=== PATIENT | male | born 1985 | race Caucasian/White ===

== ENCOUNTER 2018-01-06 15:22 | Emergency (ER) | payer BC ==
[2018-01-06] MEDS ORDERED: Doxycycline 100 MG Cap PO ONE (18:11)
[2018-01-06] MEDS ORDERED: Cephalexin 500 MG Cap PO ONE (18:12)
--- NOTE | 2018-01-06 18:14 | EDM.PDOC ---
ED HPI GENERAL MEDICAL PROBLEM - General Chief Complaint: Lower Extremity Injury/Pain Stated Complaint: INGROWN TOE NAIL Time Seen by Provider: 01/06/18 18:02 Source of Information: Reports: Patient, RN Notes Reviewed - History of Present Illness INITIAL COMMENTS - FREE TEXT/NARRATIVE: 32 year old male with paranychial infection R great toe. This started about 2 months ago. Has been soaking the toe occasionally. There has been intermitant drainage. pain, swelling, erythema that is not going away. On his feet a lot with work. Right Feet Pain Score (Numeric/FACES): 8 - Related Data Allergies Allergy/AdvReac Type Severity Reaction Status Date / Time No Known Allergies Allergy Verified 01/06/18 15:52 Home Meds: Home Meds . [No Known Home Meds] 05/27/14 [History] Past Medical History - Past Health History Medical/Surgical History: Denies Medical/Surgical History Social & Family History - Tobacco Use Smoking Status *Q: Never Smoker Second Hand Smoke Exposure: No - Alcohol Use Days Per Week of Alcohol Use: 0 - Recreational Drug Use Recreational Drug Use: No Review of Systems - Review of Systems Review Of Systems: See Below Constitutional: Denies: Chills, Fever Mouth/Throat: Reports: No Symptoms Respiratory: Denies: Shortness of Breath, Hemoptysis GI/Abdominal: Denies: Nausea, Vomiting Skin: Reports: Erythema (medial and lateral margins R great toe) Neurological: Denies: Numbness, Tingling ED EXAM, GENERAL - Physical Exam Exam: See Below General Appearance: Alert, No Apparent Distress Throat/Mouth: Normal Inspection Head: No: Facial Swelling Neck: Supple Respiratory/Chest: No Respiratory Distress Extremities: Redness (there is erythema, swelling, tenderness medial and lateral aspect of R great toe, greater on the lasteral side, slight crusting, no active drainage) Course - Vital Signs Last Recorded V/S: Last Vital Signs Temp 98.0 F 01/06/18 15:52 Pulse 62 01/06/18 15:52 Resp 15 01/06/18 15:52 BP 140/88 01/06/18 15:52 Pulse Ox 96 01/06/18 15:52 - Orders/Labs/Meds Meds: Medications Discontinued Medications Generic Name Dose Route Start Last Admin Trade Name Freq PRN Reason Stop Dose Admin Cephalexin 500 mg 01/06/18 18:12 01/06/18 18:21 Keflex PO 01/06/18 18:13 500 mg ONETIME ONE Administration Doxycycline Hyclate 200 mg 01/06/18 18:11 01/06/18 18:21 Vibramycin PO 01/06/18 18:12 200 mg ONETIME ONE Administration Departure - Departure Time of Disposition: 18:12 Disposition: Home, Self-Care 01 Condition: Fair Clinical Impression: Acute paronychia of toe of right foot - Discharge Information Instructions: Paronychia, [id number] Referrals: PCP,None [Primary Care Provider] - Forms: ED Department Discharge Additional Instructions: Silk foot in warm soapy water once or twice daily as best you can, cephalexin antibiotic 500 mg 4 times daily for 1 week, doxycycline antibiotic 100 mg twice daily for 10 days. Have rechecked the clinic if not getting back to normal within 5-7 days as expected. Follow-up with your regular medical provider or at [facility] if you do not have a regular medical provider, call [phone] as needed for appointment.
== END 2018-01-06 18:20 | disposition home or self-care (01) ==
LOC: JD.ED 15:22
DX: L03.031 Cellulitis of right toe (principal)
CPT/HCPCS: 99283; A9270

== ENCOUNTER 2018-05-14 12:03 | Emergency (ER) | payer OTHER, BC ==
[2018-05-14] MEDS ORDERED: Sodium Chloride 0.9% 10 ML Syringe FLUSH PRN ×2 (13:12→14:14)
[2018-05-14] MEDS ORDERED: HYDROmorphone 0.5 MG/0.5 ML SYRINGE IVPUSH ONE ×2 (13:12→15:04)
[2018-05-14] MEDS ORDERED: Sodium Chloride 0.9% 1,000 ML IV ONE (13:12)
[2018-05-14] MEDS ORDERED: Ondansetron 4 MG/2 ML SDV IVPUSH ONE (13:12)
--- NOTE | 2018-05-14 13:19 | EDM.PDOC ---
ED HPI GENERAL MEDICAL PROBLEM - General Chief Complaint: Gastrointestinal Problem Stated Complaint: VOMITING/SOB Time Seen by Provider: 05/14/18 12:52 Source of Information: Reports: Patient History Limitations: Reports: No Limitations - History of Present Illness INITIAL COMMENTS - FREE TEXT/NARRATIVE: 32-year-old male presents for evaluation and treatment of abdominal pain. Patient reports he was working on Sunday. Reports he was lifting something heavy when he felt a pop in his abdomen. He reports sudden abdominal pain around the umbilical area. Reports Sunday his symptoms seem to improve as he was off of work on Sunday. Reports Sunday his abdominal pain worsened. He states that a fever of 103. Reports that he vomited between 10 and 12 times over 2-3 hour period. He appreciated a mass to his abdomen which was able to reduce. This seemed to improve his abdominal pain and nausea. He reports trouble breathing due to the pain. He is not taking [id number] medications for his symptoms, no Tylenol or Motrin. He reports associated symptoms of chills. States he had one episode of diarrhea but no blood in his stool. No dysuria. Patient reports today he experienced significant pain to the periumbilical area. States that he was nauseated but again was able to push the mass back and his abdomen which improved his symptoms. He states currently the pain as a 9-10 out of 10. It is much worse with movement, coughing or sneezing. Patient reports he is still passing gas but is not passing as much as normal. Patient has an extensive past surgical history. He states that he had an appendectomy in 2005. He was told that he developed a benign pop can size mass to his colon Due to this leaking appendicitis. Was told that the mass was benign. He had surgery at [facility] in [place]. Left Middle Abdominal Pain Score (Numeric/FACES): 10 - Related Data Allergies Allergy/AdvReac Type Severity Reaction Status Date / Time No Known Allergies Allergy Verified 05/14/18 12:14 Home Meds: Home Meds . [No Known Home Meds] 05/27/14 [History] Past Medical History - Past Health History Medical/Surgical History: Denies Medical/Surgical History - Past Surgical History GI Surgical History: Reports: Appendectomy Other GI Surgeries/Procedures: 1 foot of colon removed during appy procedure r/ t a tumor on colon from appendix leaking Social & Family History - Family History Family Medical History: Noncontributory - Tobacco Use Smoking Status *Q: Never Smoker - Recreational Drug Use Recreational Drug Use: No ED ROS GENERAL - Review of Systems Review Of Systems: See Below Constitutional: Reports: Fever, Chills GI/Abdominal: Reports: Abdominal Pain (periumbilical), Diarrhea, Nausea, Vomiting, Other (continues to pass gas but reports not as much as usual). Denies: Bloody Stool : Denies: Dysuria ED EXAM, GI/ABD - Physical Exam Exam: See Below Exam Limited By: No Limitations General Appearance: Alert, WD/WN, No Apparent Distress, Obese Throat/Mouth: Normal Inspection, Normal Voice, No Airway Compromise Respiratory/Chest: No Respiratory Distress, Lungs Clear, Normal Breath Sounds Cardiovascular: Normal Peripheral Pulses, Regular Rate, Rhythm, No Murmur GI/Abdominal Exam: Soft, Other (decreased bowel sounds; defect noted to the umbilical area, no mass appreciated while patinet is supine). No: Distended, Guarding, Rigid, Rebound Neurological: Alert, Oriented, Normal Cognition Psychiatric: Normal Affect, Normal Mood Skin Exam: Warm, Dry, Normal Color. No: Erythema (no overlying erythema to the umbilical area) Course - Vital Signs Last Recorded V/S: Last Vital Signs Temp 98.3 F 05/14/18 12:09 Pulse 76 05/14/18 12:09 Resp 21 H 05/14/18 12:09 BP 170/103 H 05/14/18 12:09 Pulse Ox 98 05/14/18 12:09 - Orders/Labs/Meds Labs: Laboratory Tests 05/14/18 05/14/18 05/14/18 Range/Units 13:29 13:29 14:53 WBC 8.52 (4.23-9.07) K/mm3 RBC 5.13 (4.63-6.08) M/mm3 Hgb 14.6 (13.7-17.5) gm/L Hct 43.0 (40.1-51.0) % MCV 83.8 (79.0-92.2) fl MCH 28.5 (25.7-32.2) pg MCHC 34.0 (32.2-35.5) g/dl RDW Std Deviation 39.5 (35.1-43.9) fL Plt Count 222 (163-337) K/mm3 MPV 9.1 L (9.4-12.3) fl Neut % (Auto) 58.5 (34.0-67.9) % Lymph % (Auto) 30.2 (21.8-53.1) % Evangeline % (Auto) 9.0 (5.3-12.2) % Eos % (Auto) 1.9 (0.8-7.0) Baso % (Auto) 0.2 (0.1-1.2) % Neut # (Auto) 4.98 (1.78-5.38) K/mm3 Lymph # (Auto) 2.57 (1.32-3.57) K/mm3 Evangeline # (Auto) 0.77 (0.30-0.82) K/mm3 Eos # (Auto) 0.16 (0.04-0.54) K/mm3 Baso # (Auto) 0.02 (0.01-0.08) K/mm3 Sodium 141 (136-145) mEq/L Potassium 3.7 (3.5-5.1) mEq/L Chloride 106 (98-107) mEq/L Carbon Dioxide 26 (21-32) mEq/L Anion Gap 12.7 (5-15) BUN 17 (7-18) mg/dL Creatinine 1.0 (0.7-1.3) mg/dL Est Cr Clr Drug Dosing 115.32 mL/min Estimated GFR (MDRD) > 60 (>60) mL/min BUN/Creatinine Ratio 17.0 (14-18) Glucose 89 (74-106) mg/dL Calcium 8.7 (8.5-10.1) mg/dL Total Bilirubin 0.9 (0.2-1.0) mg/dL AST 37 (15-37) U/L ALT 80 H (16-63) U/L Alkaline Phosphatase 69 (46-116) U/L C-Reactive Protein 0.2 (<1.0) mg/dL Total Protein 7.7 (6.4-8.2) g/dl Albumin 4.0 (3.4-5.0) g/dl Globulin 3.7 gm/dL Albumin/Globulin Ratio 1.1 (1-2) Urine Color Yellow (Yellow) Urine Appearance Clear (Clear) Urine pH 6.0 (5.0-8.0) Ur Specific Printer 1.015 (1.005-1.030) Urine Protein Negative (Negative) Urine Glucose (UA) Negative (Negative) Urine Ketones Negative (Negative) Urine Occult Blood Negative (Negative) Urine Nitrite Negative (Negative) Urine Bilirubin Negative (Negative) Urine Urobilinogen 0.2 (0.2-1.0) Ur Leukocyte Esterase Negative (Negative) Urine RBC Not seen (0-5) /hpf Urine WBC 0-5 (0-5) /hpf Ur Epithelial Cells Not seen (0-5) /hpf Urine Bacteria Not seen (FEW) /hpf Urine Mucus Not seen (FEW) /hpf Meds: Medications Discontinued Medications Generic Name Dose Route Start Last Admin Trade Name Freq PRN Reason Stop Dose Admin Diatrizoate Meglum/Diatrizoate Sod 90 ml 05/14/18 14:14 05/14/18 14:28 Gastrografin 37% PO 05/14/18 14:15 90 ml ONETIME ONE Administration Hydromorphone HCl 0.5 mg 05/14/18 13:12 05/14/18 13:37 Dilaudid IVPUSH 05/14/18 13:13 0.5 mg ONETIME ONE Administration Hydromorphone HCl 0.5 mg 05/14/18 15:04 05/14/18 15:28 Dilaudid IVPUSH 05/14/18 15:05 0.5 mg ONETIME ONE Administration Sodium Chloride 1,000 mls @ 999 mls/hr 05/14/18 13:12 05/14/18 13:35 Normal Saline IV 05/14/18 14:12 999 mls/hr ONETIME ONE Administration Iopamidol 125 ml 05/14/18 14:14 05/14/18 14:29 Isovue-300 (61%) IVPUSH 05/14/18 14:15 125 ml ONETIME ONE Administration Ondansetron HCl 4 mg 05/14/18 13:12 05/14/18 13:35 Zofran IVPUSH 05/14/18 13:13 4 mg ONETIME ONE Administration Sodium Chloride 10 ml 05/14/18 13:12 05/14/18 13:39 Saline Flush FLUSH 10 ml ASDIRECTED PRN Administration Keep Vein Open Sodium Chloride 10 ml 05/14/18 14:14 05/14/18 14:29 Saline Flush FLUSH 10 ml ONETIME PRN Administration IV FLUSH - Radiology Interpretation Free Text/Narrative:: CT abdomen and pelvis Technique: Multiple axial sections were obtained from the top the liver inferiorly through the pubic symphysis. Intravenous and oral contrast has been utilized. Delayed images were obtained through the bladder. Findings: On the sagittal images there are multiple defects seen within the anterior abdominal wall compatible with multiple small fat-containing hernias. These occur above the umbilicus. Small fat-containing hernia also noted below the umbilicus. Fat-containing umbilical hernia is noted. Visualized lung bases shows nothing acute. Liver shows no focal parenchymal abnormality. Spleen appears within normal limits. Adrenal glands show no nodule. Pancreas is within normal limits. Gallbladder contains no calcified gallstones. Kidneys show symmetric contrast enhancement without hydronephrosis or mass. Aorta shows no aneurysmal dilatation. No retroperitoneal adenopathy or mesenteric abnormalities are seen. No pelvic mass or adenopathy is seen. No free fluid or inflammatory change is seen. Delayed images shows contrast within the bladder. Appendix is not visualized. Bone window settings were reviewed which shows slight degenerative change within the spine. Impression: 1. Multiple small fat-containing abdominal wall hernias as well as fat- containing umbilical hernia. 2. No additional abnormality is seen on CT study of the abdomen and pelvis. - Re-Assessments/Exams Free Text/Narrative Re-Assessment/Exam: 05/14/18 15:28 I reviewed the labs and imaging with the patient. Decided to scan the patient due to unusual past surgical history, ensure no strangulated or incarcerated hernia as well as ensure no bowel obstruction. Discussed the case with surgery bonderizer operator Dr. Martino, she will see him in clinic Sunday. No heavy lifting > 25 lbs. Ice packs and heat as needed. Discharge instructions as documented. Departure - Departure Time of Disposition: 15:37 Disposition: Home, Self-Care 01 Condition: Fair Clinical Impression: Abdominal wall hernia - Discharge Information *PRESCRIPTION DRUG MONITORING PROGRAM REVIEWED*: No *COPY OF PRESCRIPTION DRUG MONITORING REPORT IN PATIENT DEEPIKA: No Instructions: Hernia, Adult Referrals: PCP,None [Primary Care Provider] - Forms: ED Department Discharge Additional Instructions: you were given medication in the ER that can affect your ability to drive and operate machinery. Machinery within 10 hours of taking prescription narcotic pain medications. No heavy lifting over 25 pounds. Tylenol or Motrin as needed for pain relief. You may use ice or heat packs to sore area for additional relief. Follow up with surgery as scheduled. You have an appointment SundayMay 20 at 9 :[address] Martino at [facility]. Call [phone] any questions or concerns. Please return the ER if your symptoms change or worsen.
[2018-05-14] MEDS ORDERED: Diatrizoate Meglumine/Diatrizoate Sodium 37% 120 ML Bottle PO ONE (14:14)
[2018-05-14] MEDS ORDERED: Iopamidol 612 MG/ML 150 ML Bottle IVPUSH ONE (14:14)
--- NOTE | 2018-05-14 15:02 | CT ---
CT abdomen and pelvis Technique: Multiple axial sections were obtained from the top the liver inferiorly through the pubic symphysis. Intravenous and oral contrast has been utilized. Delayed images were obtained through the bladder. Findings: On the sagittal images there are multiple defects seen within the anterior abdominal wall compatible with multiple small fat-containing hernias. These occur above the umbilicus. Small fat-containing hernia also noted below the umbilicus. Fat-containing umbilical hernia is noted. Visualized lung bases shows nothing acute. Liver shows no focal parenchymal abnormality. Spleen appears within normal limits. Adrenal glands show no nodule. Pancreas is within normal limits. Gallbladder contains no calcified gallstones. Kidneys show symmetric contrast enhancement without hydronephrosis or mass. Aorta shows no aneurysmal dilatation. No retroperitoneal adenopathy or mesenteric abnormalities are seen. No pelvic mass or adenopathy is seen. No free fluid or inflammatory change is seen. Delayed images shows contrast within the bladder. Appendix is not visualized. Bone window settings were reviewed which shows slight degenerative change within the spine. Impression: 1. Multiple small fat-containing abdominal wall hernias as well as fat-containing umbilical hernia. 2. No additional abnormality is seen on CT study of the abdomen and pelvis. Diagnostic code #2
== END 2018-05-14 16:10 | disposition home or self-care (01) ==
LOC: JD.ED 12:03
DX: K43.9 Ventral hernia without obstruction or gangrene (principal); Z90.49 Acquired absence of other specified parts of digestive tract
CPT/HCPCS: 36415; 74177; 80053; 81001; 85025; 86140; 96361; 96374; 96375; 96376; 99285; J1170; J2405; J7040; J7050; Q9963; Q9967